=== PATIENT | female | born 1955 | race Caucasian/White ===

== ENCOUNTER → 2018-06-18 | Outpatient (CLI) | payer OTHER ==
[~2018-06-18] MED LIST: CALC-476 PO; GOLYTE PO; IBUP400T13 PO; MULT-1381 PO; NOR5/325 PO
--- NOTE | 2018-06-18 11:21 | RADIOLOGY IMAGING REPORT ---
[place] [facility] [place] Mikaela Emerson : 1955 MR: [id number] V: [id number] EXAM DATE: ORDERING PHYSICIAN: CLEVELAND LUND TECHNOLOGIST: Location: [facility] Patient: Mikaela Emerson : 1955 Visit/Account:[id number] Date of Sevice: 06/18/2018 Technique: KNEE 3 VIEW RIGHT HISTORY: Right knee pain Comparison studies: None FINDINGS: There is no acute fracture. The alignment of the right knee is maintained. Mild patellofe moral as well as medial tibiofemoral osteophytosis is present. No knee joint effusion. IMPRESSION: 1. Mild degenerative changes. Report Dictated By: Dennis Davis DO at 06/18/2018 11:17 AM Report E-Signed By: Dennis Davis DO at 06/18/2018 11:18 AM WSN:[id number]
== END ==
LOC: RAD 10:46
PROVIDERS: ATTEND Physician Assistant Medical
DX: M17.11 Unilateral primary osteoarthritis, right knee (principal)

== ENCOUNTER → 2018-06-26 | Outpatient (CLI) | payer OTHER ==
--- NOTE | 2018-06-26 17:29 | RADIOLOGY IMAGING REPORT ---
FACILITY: [facility] PATIENT NAME: GRICELDA SANTOS : [id number] MR: [id number] V: [id number] EXAM DATE: ORDERING PHYSICIAN: MARIN DURAND TECHNOLOGIST: Xiomara Reddy PROCEDURE:BILATERAL DIGITAL SCREENING MAMMOGRAM WITH CAD ASSISTED INTERPRETATION & 3D TOMOSYNTHESIS COMPARISON:Prior mammograms 01/02/17, 01/29/14, 12/09/11. INDICATIONS:SCREENING FINDINGS: Moderately dense fibroglandular tissue is seen throughout the breasts. The parenchymal pattern has remained stable allowing for difference in mammographic technique & patient positioning. There is no evidence of malignant appearing mass, malignant appearing calcifications or other secondary sign of malignancy in either breast. DIAGNOSTIC CATEGORY 1--NEGATIVE. RECOMMENDATIONS: ROUTINE MAMMOGRAM AND CLINICAL EVALUATION. IMPRESSION: BIRADS 1: Negative. No significant abnormality is seen. Dictated by: Kisha Garsia M.D. on 06/26/2018 at 10:38 Transcribed by: BASILIO on 06/26/2018 at 10:45 Approved by: Kisha Garsia M.D. on 06/26/2018 at 17:28 [facility]
== END ==
LOC: MAMO 00:44
PROVIDERS: ATTEND Obstetrics & Gynecology
DX: Z12.31 Encounter for screening mammogram for malignant neoplasm of breast (principal)
CPT/HCPCS: 77063; 77067